=== PATIENT | male | born 1990 | race Caucasian/White ===

== ENCOUNTER 2018-03-03 14:14 | Emergency (ER) | payer SELFPAY ==
[2018-03-03 14:47] LABS: #Basophils 0.1 thou/uL (0.0-0.2); #Eosinphils 0.1 thou/uL (0.0-0.7); #Lymphocytes 1.8 thou/uL (1.20-3.40); #Monocytes 0.5 thou/uL (0.11-0.59); #Neutrophils 6.2 thou/uL (1.40-6.50); %Basophils 1.1 % (0.0-1.0); %Eosinophils 0.7 % (0.0-10.0); %Lymphocytes 20.9 % (21.0-51.0); %Monocytes 5.8 % (0.0-10.0); %Neutrophils 71.4 % (42.0-75.0); Hemoglobin 17.9 g/dL (14.0-18.0); Mean Corpuscular HGB CONC 33.6 g/dL (32.0-36.0); Mean Corpuscular Hemoglobin 30.3 pg (27.0-31.0); Mean Corpuscular Volume 90.2 fl (80.0-94.0); Mean Platelet Volume 7.3 fL (7.4-10.4); Platelet Count 234 thou/uL (130-400); RBC Distribution Width 11.6 % (11.5-14.5); Red Blood Cell (RBC) Count 5.91 mill/uL (4.70-6.10); White Blood Cell (WBC) Count 8.7 thou/uL (4.8-10.8)
[2018-03-03] MEDS ORDERED: Lidocaine Viscous Sol 2% 15 ml UD Cup ONE (14:54)
[2018-03-03] MEDS ORDERED: Mag-Al 1200 mg/1200 mg/30 ML UDCUP ONE (14:54)
[2018-03-03 15:04] LABS: ALT (SGPT) 20 U/L (8-55); AST (SGOT) 19 U/L (5-34); Albumin 4.8 g/dL (3.5-5.0); Alkaline Phosphatase 88 U/L (40-150); Anion Gap 18 mmol/L (10-20); BUN (Urea Nitrogen) 16 mg/dL (8.9-20.6); Bilirubin, Total 0.6 mg/dL (0.2-1.2); CK (CPK) 46 U/L (30-200); Calc. Creatinine Clearance 0 mL/min (70-130); Calcium 9.9 mg/dL (7.8-10.44); Carbon Dioxide 20 mmol/L (22-29); Chloride 100 mmol/L (98-107); Estimated GFR-MDRD 81; Globulin 3.3 g/dL (2.4-3.5); Glucose 109 mg/dL (70-105); Potassium 4.2 mmol/L (3.5-5.1); Protein, Total 8.1 g/dL (6.0-8.3); Sodium 134 mmol/L (136-145)
--- NOTE | 2018-03-03 15:05 | RAD ---
PA AND LATERAL CHEST: Date: 03/03/18 HISTORY: Chest pain. FINDINGS: Heart size and mediastinum are within normal limits. Lungs are clear of infiltrates. No bony findings . IMPRESSION: No active intrathoracic disease. POS: [facility]
[2018-03-03 15:09] LABS: CKMB 0.4 ng/mL (0-6.6); Troponin I Less than 0.010 ng/mL (< 0.028)
[2018-03-03] MEDS ORDERED: Famotidine 40 MG/4 ML VIAL SLOW IVP SCH (15:15)
[2018-03-03] MEDS ORDERED: Famotidine 20 MG TAB ONE ×2 (15:37→15:58)
== END 2018-03-03 16:00 | disposition home or self-care (01) ==
LOC: ERS 14:14
DX: R07.89 Other chest pain (principal); Z79.899 Other long term (current) drug therapy
CPT/HCPCS: 36415; 71046; 80053; 82553; 84484; 85025; 93005

== ENCOUNTER 2018-05-23 17:49 | Inpatient (IN) | payer OTHER ==
[2018-05-23] MEDS ORDERED: Clindamycin/D5W 900 mg/50 ml Premix Bag ONE (18:23)
[2018-05-23] MEDS ORDERED: Piperacillin/Tazobactam 4.5 GM VIAL ONE (18:23)
[2018-05-23] MEDS ORDERED: Sodium Chloride 0.9% 100 ML ONE (18:24)
[2018-05-23 18:35] LABS: #Basophils 0.1 thou/uL (0.0-0.2); #Eosinphils 0.2 thou/uL (0.0-0.7); #Lymphocytes 1.9 thou/uL (1.20-3.40); #Monocytes 0.6 thou/uL (0.11-0.59); #Neutrophils 5.4 thou/uL (1.40-6.50); %Basophils 0.8 % (0.0-1.0); %Eosinophils 1.9 % (0.0-10.0); %Lymphocytes 23.6 % (21.0-51.0); %Monocytes 7.4 % (0.0-10.0); %Neutrophils 66.3 % (42.0-75.0); Hemoglobin 12.9 g/dL (14.0-18.0); Mean Corpuscular Volume 91.1 fL (78.0-98.0); Mean Platelet Volume 7.4 fL (7.4-10.4); Platelet Count 217 thou/uL (130-400); RBC Distribution Width 11.9 % (11.5-14.5); Red Blood Cell (RBC) Count 4.16 mill/uL (4.70-6.10); White Blood Cell (WBC) Count 8.1 thou/uL (4.8-10.8)
[2018-05-23 18:57] LABS: ALT (SGPT) 23 U/L (8-55); AST (SGOT) 17 U/L (5-34); Albumin 3.8 g/dL (3.5-5.0); Alkaline Phosphatase 76 U/L (40-150); Anion Gap 12 mmol/L (10-20); BUN (Urea Nitrogen) 10 mg/dL (8.9-20.6); Bilirubin, Total 0.5 mg/dL (0.2-1.2); Calc. Creatinine Clearance 0 mL/min (70-130); Calcium 9.2 mg/dL (7.8-10.44); Carbon Dioxide 28 mmol/L (22-29); Chloride 100 mmol/L (98-107); Estimated GFR-MDRD Greater than 90; Glucose 78 mg/dL (70-105); Potassium 3.7 mmol/L (3.5-5.1); Protein, Total 6.8 g/dL (6.0-8.3); Sodium 136 mmol/L (136-145)
[2018-05-23] MEDS ORDERED: cefTRIAXone\\ROCEPHIN 500 MG VIAL ONE (19:27)
[2018-05-23] MEDS ORDERED: Adacel (T-DAP) 0.5 ML VIAL ONE (19:27)
--- NOTE | 2018-05-23 20:07 | RAD ---
FOUR VIEWS OF THE LEFT KNEE: 05/23/18 COMPARISON: None. HISTORY: Skin infection in the left knee with pain and swelling. FINDINGS: Four views of the left knee shows moderate lateral soft tissue swelling. No underlying osseous abnorm ality is seen. No knee effusion is seen. IMPRESSION: Soft tissue swelling without underlying osseous abnormality. POS: [facility]
[2018-05-23] MEDS ORDERED: Ondansetron HCl/PF 4 MG/2 ML Vial IVP PRN (23:28)
[2018-05-23] MEDS ORDERED: VANCOMYCIN IVPB PRN ×2 (23:41→23:42)
[2018-05-23] MEDS: Piperacillin/Tazobactam 3.375 GM in Sodium Chloride 0.9% 100 ML IVPB SCH (23:58)
[2018-05-24 00:35] VITALS: BMI 25.4
[2018-05-24] MEDS: Sodium Chloride 0.9% 1,000 ML IV SCH ×3 (02:31→22:41)
--- NOTE | 2018-05-24 04:09 | HP ---
CODE STATUS: FULL CODE. PRIMARY CARE PHYSICIAN: Patient has no PCP. TIME OF EVALUATION: 8:10 p.m. CHIEF COMPLAINT: Left knee redness and swelling. HISTORY OF PRESENT ILLNESS: This is a 28-year-old male patient who has a past medical history of anxiety, came to the hospital after having left knee progressively worsening swelling, erythema that extended to the left ankle, associated with tenderness that was [id number] inability to bear weight due to the pain in some positions of the leg, no alleviating factors, patient had been taking Keflex IV 100 mg b.i.d. for 5 days, but symptoms initially got better after that got worse. REVIEW OF SYSTEMS: Constitutional: Patient had chills, subjective fever. Respiratory: No cough, no sputum production, shortness of breath. Cardiovascular: No chest pain, palpitations, shortness of breath. Gastrointestinal: No nausea, vomiting, diarrhea, or abdominal pain. Symptoms are persisting. No dizziness, headache, or feeling lightheaded. Genitourinary : No burning with urination. Extremities: No leg swelling except for the left knee. There has increased redness, swelling, tenderness, and decreased range of motion. All other systems were reviewed and negative except for the findings as mentioned above. PAST MEDICAL HISTORY: Anxiety. SOCIAL HISTORY: Patient used marijuana. No smoking history. Lives at home with family. PSYCHIATRIC HISTORY: No previous psychiatric history. PAST SURGICAL HISTORY: Left wrist surgery. FAMILY HISTORY: No significant family history reported. ALLERGIES: No known drug allergies. REPORTED MEDICATIONS: None. PHYSICAL EXAMINATION: VITAL SIGNS: On presentation, blood pressure 106/74 with heart rate 114, respiratory rate was 16, temperature 99.8. Pain was 2, oxygen saturation 98 on room air. GENERAL: Patient is alert, oriented, not in acute distress. HEENT: Eye, normal conjuctivae. Moist oral mucosa. Anicteric. NECK: No JVD. RESPIRATORY: Bilateral air entry. No rales, wheezing. Symmetric expansion. CARDIOVASCULAR: Normal rate, regular rhythm. No murmurs, rubs, or gallops. No edema. ABDOMEN: Soft, normal bowel sounds. MUSCULOSKELETAL: At baseline range of motion and strength. No tenderness except for the left knee. There is swelling, red, increased tenderness, unable to bear weight. NEUROLOGIC: Baseline sensory. No evidence of any new focal weakness. Baseline speech. Cranial nerves seems to be intact. PSYCHIATRIC: Patient is in good mood. No anxiety, oriented, optimal judgment. LABORATORY DATA: Reviewed. White count 9.1, hemoglobin 12.9, platelet count 217. Sodium 136, potassium 3.7, chloride 100, carbon dioxide 28, anion gap 12, BUN 10, creatinine 0.8, GFR greater than 90, glucose 78. C-reactive protein 6.9. The x-ray of the knee was done and showed that the patient had soft tissue swelling without underlying osseous abnormalities. ASSESSMENT AND PLAN: The patient presented to the hospital with following medical problems: 1. Tachycardia, likely secondary to acute underlying infection of the left knee. 2. Dehydration, treated with antibiotics. 3. Left knee and left leg cellulitis, no evidence of joint involvement. However, Dr. Wilkerson has been consulted from the ER, we will follow recommendations. Treated with antibiotics, leg elevation. We will follow cultures and we will adjust treatment as needed. 4. History of use of marijuana, advised to stop using drugs. 5. Deep venous thrombosis prophylaxis. Patient ambulates. [facility]
[2018-05-24] MEDS: Vancomycin HCl 1.25 GM in Sodium Chloride 0.9% 250 ML 250 ML IVPB SCH ×3 (04:33→20:18)
[2018-05-24 04:55] LABS: #Basophils 0.1 thou/uL (0.0-0.2); #Eosinphils 0.2 thou/uL (0.0-0.7); #Lymphocytes 2.1 thou/uL (1.20-3.40); #Monocytes 0.7 thou/uL (0.11-0.59); #Neutrophils 5.8 thou/uL (1.40-6.50); %Basophils 0.6 % (0.0-1.0); %Eosinophils 1.7 % (0.0-10.0); %Lymphocytes 23.7 % (21.0-51.0); Hemoglobin 13.2 g/dL (14.0-18.0); Mean Corpuscular HGB CONC 33.5 g/dL (32.0-36.0); Mean Corpuscular Hemoglobin 30.6 pg (27.0-31.0); Mean Corpuscular Volume 91.5 fL (78.0-98.0); Mean Platelet Volume 7.4 fL (7.4-10.4); Platelet Count 224 thou/uL (130-400); RBC Distribution Width 11.9 % (11.5-14.5); White Blood Cell (WBC) Count 8.7 thou/uL (4.8-10.8)
[2018-05-24 05:16] LABS: Anion Gap 12 mmol/L (10-20); BUN (Urea Nitrogen) 8 mg/dL (8.9-20.6); Calc. Creatinine Clearance 141 mL/min (70-130); Calcium 9.2 mg/dL (7.8-10.44); Carbon Dioxide 29 mmol/L (22-29); Chloride 101 mmol/L (98-107); Estimated GFR-MDRD Greater than 90; Glucose 93 mg/dL (70-105); Potassium 4.2 mmol/L (3.5-5.1); Sodium 138 mmol/L (136-145)
[2018-05-24] MEDS: Piperacillin/Tazobactam 3.375 GM in Sodium Chloride 0.9% 100 ML IVPB SCH ×4 (07:51→23:32)
[2018-05-24] MEDS: Enoxaparin Sodium 40 MG/0.4 ML SYRINGE SC SCH (07:51)
[2018-05-24] MEDS: Acetaminophen 325 MG TAB PO PRN ×2 (11:21→20:30)
--- NOTE | 2018-05-24 14:46 | PDOC.PN ---
- Subjective Encounter Start Date: 05/24/18 Encounter Start Time: 14:45 Subjective: feels much better already -: reports that his leg swelling is so much better -: pain ,redness imrpoved too.no fever/chills - Objective Resuscitation Status: Resuscitation Status FULL:Full Resuscitation MAR Reviewed: Yes Vital Signs & Weight: Vital Signs (12 hours) Temp Pulse Resp BP BP Pulse Ox 05/24/18 11:16 98.4 F 88 16 119/70 98 05/24/18 08:00 98.6 F 82 16 115/69 96 05/24/18 04:00 98.7 F 89 16 124/74 97 Weight Admit Weight 167 lb 4.8 oz Weight 167 lb 4.8 oz Result Diagrams: 05/24/18 04:14 05/24/18 04:14 Additional Labs: Microbiology 05/23/18 18:20 Venous blood - Right Arm Blood Culture - Preliminary Specimen has been received and culture in progress. No Growth to date. 05/23/18 18:20 Venous blood - Left Arm Blood Culture - Preliminary Specimen has been received and culture in progress. No Growth to date. Laboratory Tests 05/23/18 18:06 C-Reactive Protein 6.96 H labs reviewed Phys Exam - Physical Examination Constitutional: NAD HEENT: PERRLA, moist MMs, sclera anicteric, oral pharynx no lesions Neck: no nodes, no JVD, supple, full ROM Respiratory: no wheezing, no rales, no rhonchi, clear to auscultation bilateral Cardiovascular: RRR, no significant murmur Gastrointestinal: soft, non-tender, no distention, positive bowel sounds Musculoskeletal: no edema, pulses present leg redness extends from kne to mid uriostegui.mild knee swelling Neurological: non-focal, normal sensation, moves all 4 limbs Psychiatric: normal affect, A&O x 3 Dx/Plan (1) Cellulitis of leg without foot, left Code(s): L03.116 - CELLULITIS OF LEFT LOWER LIMB Status: Acute - Plan cont ABx. Likley MRSA -: doubtful septic knee as erythema extends down to leg -: no knee pain w movement either -: am labs. -: HD stable * . Review of Systems - Review of Systems Constitutional: negative: fever, chills, sweats, weakness, malaise, other Respiratory: negative: Cough, Dry, Shortness of Breath, Hemoptysis, SOB with Excertion, Pleuritic Pain, Sputum, Wheezing Cardiovascular: negative: chest pain, palpitations, orthopnea, paroxysmal nocturnal dyspnea, edema, light headedness, other Gastrointestinal: negative: Nausea, Vomiting, Abdominal Pain, Diarrhea, Constipation, Melena, Hematochezia, Other Genitourinary: negative: Dysuria, Frequency, Incontinence, Hematuria, Retention , Other Musculoskeletal: negative: Neck Pain, Shoulder Pain, Arm Pain, Back Pain, Hand Pain, Leg Pain, Foot Pain, Other Neurological: negative: Weakness, Numbness, Incoordination, Change in Speech, Confusion, Seizures, Other - Medications/Allergies Allergies/Adverse Reactions: Allergies Allergy/AdvReac Type Severity Reaction Status Date / Time No Known Drug Allergies Allergy Verified 05/23/18 21:51 Medications: Current Medications Acetaminophen (Tylenol) 650 mg PO Q4H PRN PRN Reason: Headache/Fever or Pain Last Admin: 05/24/18 11:21 Dose: 650 mg Enoxaparin Sodium (Lovenox) 40 mg SC 0900 [facility] Last Admin: 05/24/18 07:51 Dose: Not Given Piperacillin Sod/Tazobactam (Sod 3.375 gm/ Sodium Chloride) 100 mls @ 200 mls/ hr IVPB Q6HR [facility] Last Admin: 05/24/18 11:25 Dose: 100 mls Vancomycin HCl 1.25 gm/ Sodium (Chloride) 250 mls @ 166.667 mls/hr IVPB 0400, 1200,2000 [facility] Last Admin: 05/24/18 11:26 Dose: 250 mls Sodium Chloride (Normal Saline 0.9%) 1,000 mls @ 100 mls/hr IV .Q10H [facility] Last Admin: 05/24/18 08:01 Dose: 1,000 mls Miscellaneous Medication (Pharmacy To Dose) 1 each IVPB PRN PRN PRN Reason: PHARMACY TO DOSE Ondansetron HCl (Zofran) 4 mg IVP Q6H PRN PRN Reason: Nausea/Vomiting
[2018-05-24 19:32] LABS: Vancomycin, Trough 15.2 ug/mL
--- NOTE | 2018-05-24 22:20 | CON ---
DATE OF CONSULTATION: 05/24/2018 ORTHOPEDIC CONSULTATION REQUESTING PHYSICIAN: Dr. Hoskins. CONSULTING PHYSICIAN: Dr. Cali Wilkerson. REASON FOR CONSULTATION: Left-knee swelling. HISTORY OF PRESENT ILLNESS: Donnell is a 28-year-old white male who has had progressive knee swelling for the last week or so. He had spontaneous onset. Apparently, he was taken Keflex as an outpatient with failed outpatient management. He presented to the emergency room. He was [facility] and our service was consulted for Orthopedic evaluation of an infrapatellar potentially septic bursitis. Patient received Zosyn and vancomycin. He has had a dramatic turnaround in his dung thema, which was extending down onto the left leg. He tells me that yesterday, his left leg around t he calf was tight, swollen, and quite uncomfortable. Today, it is supple and he can stand, walk, and get around. His knee pain is also significantly improved. Cultures not been obtained, as there is apparently no loculation to cannulate. PAST MEDICAL HISTORY: Negative. PAST SURGICAL HISTORY: Negative. MEDICATIONS: None. ALLERGIES: No known drug allergies. Denies contact allergies. 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 He does spend a fair amount of time on his knees and a pparently his pain started spontaneously. LABORATORY EVALUATION: White blood cell count is 8.7. His C-reactive protein was 6.96. PHYSICAL EXAMINATION: Visual inspection of the left lower extremity demonstrates him to have some er ythema extending down the anterior leg from the infrapatellar region. I cannot palpate a loculation under the patellar tendon bursa. Ballottement is negative. The joint does not appear to be involved . There is no effusion over the knee and range of motion is adequate from full extension to about 12 0 degrees of flexion without discomfort. Erythema blanches, but again is fading compared to photogra phs from yesterday. IMPRESSION: Left knee infrapatellar cellulitis, but do not palpate a loculation cannot completely ru le out septic bursitis, but with significant improvement cellulitis inclined to continue antibiotic t reatment. PLAN: No surgical recommendations at this point. Continue antibiotics for recheck tomorrow and foll ow up daily.
[2018-05-25] MEDS: Vancomycin HCl 1.25 GM in Sodium Chloride 0.9% 250 ML 250 ML IVPB SCH ×3 (04:15→20:40)
[2018-05-25] MEDS: Piperacillin/Tazobactam 3.375 GM in Sodium Chloride 0.9% 100 ML IVPB SCH ×4 (06:10→23:34)
[2018-05-25] MEDS: Sodium Chloride 0.9% 1,000 ML IV SCH ×2 (08:30→18:22)
[2018-05-25] MEDS: Enoxaparin Sodium 40 MG/0.4 ML SYRINGE SC SCH (08:30)
[2018-05-25] MEDS: Saccharomyces boulardii 250 MG CAP PO SCH (08:30)
--- NOTE | 2018-05-25 22:19 | PDOC.PN ---
- Subjective Encounter Start Date: 05/25/18 Encounter Start Time: 15:00 Patient seen and examined for cellulitis. Still has some redness around the ant knee with warmth and tenderness. No fever/chills/ N/V/diarrhea. No overnight events - Objective Resuscitation Status: Resuscitation Status FULL:Full Resuscitation MAR Reviewed: Yes Vital Signs & Weight: Vital Signs (12 hours) Temp Pulse Resp BP Pulse Ox 05/25/18 21:06 98.7 F 88 16 122/76 98 Weight Admit Weight 167 lb 4.8 oz Weight 167 lb 4.8 oz I&O: 05/24/18 05/25/18 05/26/18 06:59 06:59 06:59 Intake Total 5180 2600 Balance 5180 2600 Result Diagrams: 05/24/18 04:14 05/24/18 04:14 Additional Labs: Microbiology 05/23/18 18:20 Venous blood - Right Arm Blood Culture - Preliminary NO GROWTH AT 48 HOURS 05/23/18 18:20 Venous blood - Left Arm Blood Culture - Preliminary NO GROWTH AT 48 HOURS Phys Exam - Physical Examination Constitutional: NAD Respiratory: no wheezing, no rhonchi Cardiovascular: RRR, no rub Gastrointestinal: soft, non-tender, positive bowel sounds Musculoskeletal: no edema Erythema and tenderness over the left ant knee - improving per patient Neurological: moves all 4 limbs Psychiatric: A&O x 3 Dx/Plan (1) Cellulitis, leg Code(s): L03.119 - CELLULITIS OF UNSPECIFIED PART OF LIMB Status: Acute Qualifiers: Laterality: left Qualified Code(s): L03.116 - Cellulitis of left lower limb (2) Depression Code(s): F32.9 - MAJOR DEPRESSIVE DISORDER, SINGLE EPISODE, UNSPECIFIED Status : Chronic Comment: No suicidal ideation (3) Chronic anemia Code(s): D64.9 - ANEMIA, UNSPECIFIED Status: Chronic Comment: suspect nutritional - Plan continue antibiotics, DVT proph w/SCDs Cotn Atbx overnight - Reassess in AM -: Will dc in AM if stable -: Resume Zoloft -: Cont other meds as below -: DC IVF in AM Review of Systems - Review of Systems Respiratory: negative: Cough, Dry, Shortness of Breath, Hemoptysis, SOB with Excertion, Pleuritic Pain, Sputum, Wheezing Cardiovascular: negative: chest pain, palpitations, orthopnea, paroxysmal nocturnal dyspnea, edema, light headedness, other - Medications/Allergies Allergies/Adverse Reactions: Allergies Allergy/AdvReac Type Severity Reaction Status Date / Time No Known Drug Allergies Allergy Verified 05/23/18 21:51 Medications: Current Medications Acetaminophen (Tylenol) 650 mg PO Q4H PRN PRN Reason: Headache/Fever or Pain Last Admin: 05/24/18 20:30 Dose: 650 mg Enoxaparin Sodium (Lovenox) 40 mg SC 0900 [facility] Last Admin: 05/25/18 08:30 Dose: 40 mg Piperacillin Sod/Tazobactam (Sod 3.375 gm/ Sodium Chloride) 100 mls @ 200 mls/ hr IVPB Q6HR [facility] Last Admin: 05/25/18 18:22 Dose: 100 mls Vancomycin HCl 1.25 gm/ Sodium (Chloride) 250 mls @ 166.667 mls/hr IVPB 0400, 1200,2000 [facility] Last Admin: 05/25/18 20:40 Dose: 250 mls Sodium Chloride (Normal Saline 0.9%) 1,000 mls @ 100 mls/hr IV .Q10H [facility] Last Admin: 05/25/18 18:22 Dose: 1,000 mls Miscellaneous Medication (Pharmacy To Dose) 1 each IVPB PRN PRN PRN Reason: PHARMACY TO DOSE Ondansetron HCl (Zofran) 4 mg IVP Q6H PRN PRN Reason: Nausea/Vomiting Saccharomyces Boulardii (Florastor) 250 mg PO DAILY [facility] Last Admin: 05/25/18 08:30 Dose: 250 mg
[2018-05-26] MEDS: Vancomycin HCl 1.25 GM in Sodium Chloride 0.9% 250 ML 250 ML IVPB SCH ×2 (03:33→11:08)
[2018-05-26] MEDS: Sodium Chloride 0.9% 1,000 ML IV SCH (04:35)
[2018-05-26] MEDS: Piperacillin/Tazobactam 3.375 GM in Sodium Chloride 0.9% 100 ML IVPB SCH ×2 (06:14→13:57)
[2018-05-26] MEDS ORDERED: Cyclobenzaprine 10 MG TAB PO PRN (07:37)
[2018-05-26] MEDS: Saccharomyces boulardii 250 MG CAP PO SCH (09:35)
[2018-05-26 15:06] VITALS: BP 135/84; TEMP 98
--- NOTE | 2018-05-27 08:31 | DIS ---
DISCHARGE DISPOSITION: Home. FOLLOWUP: Follow up with primary care physician, Dr. Oma Austin in 1 week. ALLERGIES: No known drug allergies. DISCHARGE MEDICATIONS: Keflex 500 mg every 6 hourly for the next 10 days, doxycycline 100 mg twice a day for next 10 days, Zoloft 100 mg daily, Flexeril as needed. BRIEF HOSPITAL COURSE: The patient is a 28-year-old male who presented to the hospital with redness and swelling around the left knee. Please refer to the history and physical for further details. The patient was admitted to the hospital with a diagnosis of cellulitis in the left leg. He was [place] on vancomycin and Zosyn. He was also evaluated by Orthopedic, Dr. Wilkerson. They recommended to c ontinue antibiotic. His blood cultures have been negative so far. Primary care physician advised to follow up on the final cultures. His vancomycin, Zosyn have been changed to oral. Plan of care was discussed with the patient. He stated understanding. Redness in the left leg has significantly imp roved. FINAL DIAGNOSES: 1. Left leg sepsis secondary to left leg cellulitis. His temperature in the emergency room was 99.9 with pulse rate of 107. 2. Dehydration, resolved. 3. Anxiety and depression. 4. Chronic anemia, suspected nutritional. Primary care physician is advised to follow.
== END 2018-05-26 15:04 | disposition home or self-care (01) | DRG 872 ==
LOC: ERS 17:49 → T4-B 19:30
PROVIDERS: ADMIT Hospitalist; ATTEND Hospitalist
DX: A41.9 Sepsis, unspecified organism (principal); L03.116 Cellulitis of left lower limb; E86.0 Dehydration; F41.8 Other specified anxiety disorders; D64.9 Anemia, unspecified
CPT/HCPCS: 36415; 80048; 80053; 80202; 83605; 85025; 86140; 87040; 90471; 90715; 96365; 96367; J0696; J1650; J2543; J3370; J3490; J7050

== ENCOUNTER 2018-05-27 16:37 | Emergency (ER) | payer OTHER, SELFPAY ==
[2018-05-27] MEDS ORDERED: Promethazine 25 MG TAB ONE (17:54)
== END 2018-05-27 19:05 | disposition home or self-care (01) ==
LOC: ERS 16:37
DX: R11.2 Nausea with vomiting, unspecified (principal); Z79.899 Other long term (current) drug therapy
CPT/HCPCS: 99283

== ENCOUNTER 2019-09-04 13:01 | Outpatient (CLI) | payer OTHER ==
--- NOTE | 2019-09-04 14:43 | CT ---
CT OF THE ABDOMEN AND PELVIS: DATE: 09/04/2019. COMPARISON: None. HISTORY: Right lower quadrant pain. TECHNIQUE: Axial CT imaging at 5 mm intervals from lung bases through pubic symphysis with intravenous and oral contrast. Coronal and sagittal reformatted imaging obtained. FINDINGS: The imaged lung bases are unremarkable. No free intraperitoneal air is noted. No free fluid noted in the abdomen/pelvis. There is a vague hypodensity within the right lobe of the liver on image 14 measuring approximately 5 mm, too small to characterize. The gallbladder, spleen, pancreas, adrenal glands, and kidneys appear unremarkable. No evidence for bowel inflammatory change or bowel obstruction. The colon is decompressed and thus no t well assessed, particularly the sigmoid colon and the descending colon. The appendix is normal. The vascular structures of the abdomen/pelvis appear patent. No lymphadenopathy is seen within the ab domen or pelvis. No acute osseous abnormality noted. IMPRESSION: No acute findings. No evidence for bowel obstruction or appendicitis. Transcribed Date/Time: 09/04/2019 2:45 PM
== END 2019-09-04 13:02 | disposition home or self-care (01) ==
LOC: BICCT 13:01
PROVIDERS: ATTEND Internal Medicine
DX: R10.31 Right lower quadrant pain (principal); R19.4 Change in bowel habit
CPT/HCPCS: 74177

== ENCOUNTER 2019-09-14 00:56 | Emergency (ER) | payer OTHER ==
[2019-09-14] MEDS ORDERED: Lorazepam 2 MG/ML VIAL ONE (01:23)
--- NOTE | 2019-09-14 07:48 | RAD ---
Portable frontal chest radiograph: 09/14/2019 COMPARISON: 03/03/2018 HISTORY: Chest pain FINDINGS: Lungs are clear. Heart and mediastinal contours appear within normal limits. IMPRESSION: No acute findings.
== END 2019-09-14 02:00 | disposition home or self-care (01) ==
LOC: ERS 00:56
DX: R07.89 Other chest pain (principal); F41.9 Anxiety disorder, unspecified
CPT/HCPCS: 71045; 93005; 96372; J2060